=== PATIENT | male | born 1985 | race Hispanic/Latino ===

== ENCOUNTER 2017-06-15 07:26 | Emergency (ER) | payer BC | END 2017-06-15 08:27 | disposition left against medical advice (07) | LOC: ERS 07:26 | DX: Z53.21 Procedure and treatment not carried out due to patient leaving prior to being seen by health care provider (principal) ==

== ENCOUNTER 2019-11-04 14:01 | Emergency (ER) | payer BC, SELFPAY ==
[2019-11-04] MEDS ORDERED: diphenhydrAMINE 25 MG CAP ONE (14:13)
[2019-11-04] MEDS ORDERED: Dexamethasone 4 mg/ml Vial ONE (14:13)
[2019-11-04] MEDS ORDERED: Famotidine 20 MG TAB ONE (14:13)
== END 2019-11-04 15:30 | disposition home or self-care (01) ==
LOC: ERS 14:01
DX: L50.0 Allergic urticaria (principal); F17.210 Nicotine dependence, cigarettes, uncomplicated
CPT/HCPCS: 96372; 99283; J1100; Q0163

== ENCOUNTER 2020-02-08 15:24 | Emergency (ER) | payer SELFPAY ==
--- NOTE | 2020-02-08 15:56 | RAD ---
EXAM: XR Lumbar Spine 2 Or 3 View PROVIDED CLINICAL HISTORY: Low back pain. COMPARISON: None FINDINGS: 5 nonrib-bearing lumbar-type vertebral bodies are visualized. The vertebral body heights are within n ormal limits. No fracture or subluxation is seen involving lumbar spine. IMPRESSION: Normal views lumbar spine without fracture or subluxation.
== END 2020-02-08 16:21 | disposition home or self-care (01) ==
LOC: ERS 15:24
DX: M54.5 Low back pain (principal); F17.210 Nicotine dependence, cigarettes, uncomplicated; W17.89XA Other fall from one level to another, initial encounter; Y93.39 Activity, other involving climbing, rappelling and jumping off
CPT/HCPCS: 72100